=== PATIENT | female | born 1950 | race Caucasian/White ===

== ENCOUNTER 2017-09-30 09:43 | Outpatient (CLI) | payer MEDICARE, OTHER ==
--- NOTE | 2017-10-01 13:27 | Mammography Report ---
DIGITAL SCREENING MAMMOGRAM: 09/30/2017 CLINICAL INDICATION: A 67-year-old with family history of breast cancer for screening. COMPARISON: 08/2015, 06/2014, 11/2012, 10/2012, 07/2011, 11/2009 TECHNIQUE: Routine CC and MLO projections were obtained of the breasts. FINDINGS: Scattered fibroglandular tissue is present within the breasts. There are no dominant romaine s, suspicious microcalcifications, or secondary signs of malignancy. In comparison to the previous st udies, there are no significant changes. ASSESSMENT: NO MAMMOGRAPHIC EVIDENCE OF MALIGNANCY. NO SIGNIFICANT INTERVAL CHANGES. RECOMMENDATION: Screening mammography is recommended annually. BIRADS category 1 - negative. STANDARD QUALIFYING STATEMENTS 1. This examination was reviewed with the aid of Computed-Aided Detection (CAD). 2. A negative or benign imaging report should not delay biopsy if clinically suspicious findings are present. Consider surgical consultation if warranted. More than 5% of cancers are not identified by i maging. 3. Dense breasts may obscure an underlying neoplasm. JOB #: [id number] EXT JOB #:[id number]
== END 2017-09-30 09:44 | disposition home or self-care (01) ==
LOC: DI 09:43
PROVIDERS: ATTEND Internal Medicine
DX: Z12.31 Encounter for screening mammogram for malignant neoplasm of breast (principal); Z80.3 Family history of malignant neoplasm of breast
CPT/HCPCS: 77067

== ENCOUNTER 2018-11-19 08:40 | Outpatient (CLI) | payer MEDICARE, OTHER ==
--- NOTE | 2018-11-20 15:18 | Mammography Report ---
Reason: SCREENING MAMMO Procedure Date: 11/19/2018 Accession Number: [id number] / [id number] Procedure: REYES - Screening Mammo w/[facility] CPT Code: FULL RESULT: EXAM: Screening Mammo w/[facility] DATE: 11/19/2018 9:30 AM CLINICAL HISTORY: Routine screening TECHNIQUE: Bilateral CC and MLO views were obtained. COMPARISON: 09/30/2017, 08/17/2015 and 06/14/2014 FINDINGS: There are scattered fibroglandular densities. No significant interval change. No suspicious masses, clustered microcalcifications, or regions of architectural distortion are identified. Bilateral nodular densities are stable. IMPRESSION: Benign findings RECOMMENDATION: Routine annual screening unless otherwise clinically indicated. BIRADS CATEGORY 2: Benign findings STANDARD QUALIFYING STATEMENTS: 1. This examination was not reviewed with the aid of Computer-Aided Detection (CAD). 2. A negative or benign imaging report should not delay biopsy if clinically suspicious findings are present. Consider surgical consultation if warrented. More than 5% of cancers are not identified by imaging. 3. Dense breasts may obscure an underlying neoplasm. 4. This examination was reviewed with the aid of 3D breast imaging (tomosynthesis).
== END 2018-11-19 08:41 | disposition home or self-care (01) ==
LOC: DI 08:40
PROVIDERS: ATTEND Internal Medicine
DX: Z12.31 Encounter for screening mammogram for malignant neoplasm of breast (principal)
CPT/HCPCS: 77063; 77067

== ENCOUNTER 2019-04-30 10:53 | Day surgery (SDC) | payer MEDICARE, OTHER ==
[2019-04-30] MEDS ORDERED: LACTATED RINGERS 1,000 ML IV ONE (11:30)
[2019-04-30] MEDS ORDERED: MIDAZOLAM 2 MG/2 ML VIAL IVP ONE (13:03)
[2019-04-30] MEDS ORDERED: fentaNYL 250 MCG/5 ML VIAL IVP ONE (13:03)
[2019-04-30 14:06] VITALS: BP 104/72
== END 2019-04-30 10:54 | disposition home or self-care (01) ==
LOC: SDS 10:53
PROVIDERS: ATTEND Surgery
PROC: 0DBP8ZZ Excision of Rectum, Via Natural or Artificial Opening Endoscopic (ICD-10-PCS; principal; 2019-04-30 12:15)
DX: Z12.11 Encounter for screening for malignant neoplasm of colon (principal); D12.8 Benign neoplasm of rectum; K64.8 Other hemorrhoids; K57.30 Diverticulosis of large intestine without perforation or abscess without bleeding; Z80.0 Family history of malignant neoplasm of digestive organs
CPT/HCPCS: 45385; J3010; J7120

== ENCOUNTER 2019-08-11 10:26 | Outpatient (CLI) | payer MEDICARE, OTHER ==
--- NOTE | 2019-08-11 15:08 | Nuclear Medicine Report ---
Reason: CHEST PAIN Procedure Date: 08/11/2019 Accession Number: [id number] / [id number] Procedure: NM - Myocardial Perfusion STR/RST CPT Code: FULL RESULT: EXAM: SINGLE-ISOTOPE EXERCISE STRESS TEST. SINGLE-ISOTOPE AND ONE-DAY REST/STRESS MYOCARDIAL PERFUSION SCANS WITH TOMOGRAPHIC IMAGING, QUANTITATIVE ANALYSIS, WALL MOTION ANALYSIS AND CALCULATION OF EJECTION FRACTION. EXAM DATE: 08/11/2019 02:15 PM. CLINICAL HISTORY: Chest pain. COMPARISON: None available. TECHNIQUE: A rest myocardial perfusion scan was done with tomography after the intravenous administration of 9.9 mCi Tc-99m sestamibi. After an appropriate delay, a treadmill exercise stress was performed according to department protocol. The patient exercised for 6 minutes and 2 seconds. The maximum heart rate was 162 bpm, which was >100% of the maximum predicted heart rate of 152 bpm. At approximately peak heart rate, 43.6 mCi of Tc-99m sestamibi was injected for stress myocardial perfusion scan. Motion correction was applied when appropriate. Gated tomographic images were obtained for wall motion analysis and computation of left ventricular ejection fraction. FINDINGS: On visual analysis, no fixed or reversible perfusion defects are evident. Computer analysis. Summed stress score 2 Summed rest score 2 Summed difference score 0 Wall motion analysis demonstrates no focal wall motion abnormality. The left ventricular end-diastolic volume is 44 cc. The left ventricular end-systolic volume is 6 cc. The left ventricular ejection fraction is calculated to be 86%. IMPRESSION: 1. No scintigraphic findings to indicate myocardial ischemia. Negative for infarct. Based on computer analysis, normal study with no ischemia. 2. Normal left ventricular ejection fraction of 86%. 3. Normal segmental and global wall motion. 4. Normal left ventricular cavity size, no change with stress. Please correlate findings with stress ECG tracings and procedure notes. RADIA
--- NOTE | 2019-08-12 11:17 | CARDIAC PROCEDURE NOTE ---
Dr. Smith - please verify this is your report Dr. White was keyed in as dictator, so report did not interface I used Attending Physn (Dr. Phillips) to complete job, (&sounded like your voice) remove this flag before signing thanks DATE OF SERVICE: 08/11/2019 Physician: Zoila Phillips MD PROCEDURE: Exercise Cardiolite. PROTOCOL: Alexys. TIME: Six minutes 2 seconds. METs: 7.09. REASON FOR STOPPING TEST: The patient had gone 106% of her maximum predicted heart rate. HR response: 75 to maximum 162. Blood pressure response: 140/90 to 170/84. SYMPTOMS: The patient did have some chest tightness across her chest. ST-segment response: no significant ST-segment elevations or depressions. Arrhythmias: occasional PVC. IMPRESSION: The patient had symptoms, but there were no significant EKG changes. CONCLUSION: Await imaging. TD: 08/11/2019 13:01 MTDD
== END 2019-08-11 10:27 | disposition home or self-care (01) ==
LOC: DI 10:26
PROVIDERS: ATTEND Internal Medicine
DX: R07.9 Chest pain, unspecified (principal)
CPT/HCPCS: 78452; 93017; A9500

== ENCOUNTER 2021-03-09 07:49 | Outpatient (CLI) | payer MEDICARE, OTHER ==
--- NOTE | 2021-03-10 09:36 | Mammography Report ---
BILATERAL DIGITAL SCREENING MAMMOGRAM 3D/2D: 03/09/2021 CLINICAL: Routine screening. Comparison is made to exams dated: 11/19/2018 mammogram, 09/30/2017 mammogram, and 08/17/2015 mammogr am - [facility]. There are scattered fibroglandular elements in both breasts. There is a new oval high density mass with a spiculated margin in the left breast at 6 o'clock horseradish grinder ior depth. No other significant masses, calcifications, or other findings are seen in either breast. IMPRESSION: INCOMPLETE: NEEDS ADDITIONAL IMAGING EVALUATION The new oval high density mass in the left breast is indeterminate. Mediolateral and spot compressio n views as well as additional views with possible ultrasound are recommended. This exam was interpreted at Station ID: [id number]. NOTE: For mammograms, a report in lay terms will be sent to the patient. Approximately 15% of breast malignancies will not be visualized mammographically. In the management of a palpable breast mass, a negative mammogram must not discourage biopsy of a clinically suspicious lesion. Electronically Signed By: Quentin Irizarry M.D. ddp/:03/09/2021 08:41:44 ACR BI-RADS Category 0: Incomplete 3340F PARENCHYMAL PATTERN: (A) - The breast(s) demonstrate(s) scattered fibroglandular densities. BI-RADS CATEGORY: (0) - 0 Mammo and [place] [id number] Immediate follow-up LATERALITY: (B)
== END 2021-03-09 07:50 | disposition home or self-care (01) ==
LOC: DI 07:49
DX: Z12.31 Encounter for screening mammogram for malignant neoplasm of breast (principal); R92.8 Other abnormal and inconclusive findings on diagnostic imaging of breast

== ENCOUNTER 2021-04-04 09:59 | Outpatient (CLI) | payer MEDICARE, OTHER ==
--- NOTE | 2021-04-05 14:08 | Mammography Report ---
UNILATERAL LEFT DIGITAL DIAGNOSTIC MAMMOGRAM 3D/2D: 04/04/2021 CLINICAL: Patient returns today to evaluate a focal asymmetry in the left breast. Comparison is made to exams dated: 03/09/2021 mammogram, 11/19/2018 mammogram, 09/30/2017 mammogram, mammogram, 06/04/2014 mammogram, and 11/24/2012 mammogram - [facility]. Ther e are scattered fibroglandular elements in left breast. There is an oval equal density mass with a spiculated margin in the left breast at 6 o'clock posterio r depth. No other significant masses or calcifications are seen in the breast. IMPRESSION: INCOMPLETE: NEEDS ADDITIONAL IMAGING EVALUATION The oval equal density mass in the left breast is indeterminate. An ultrasound is recommended. Ultrasound will be performed immediately following the current exam. This exam was interpreted at Station ID: [id number]. NOTE: For mammograms, a report in lay terms will be sent to the patient. Approximately 15% of breast malignancies will not be visualized mammographically. In the management of a palpable breast mass, a negative mammogram must not discourage biopsy of a clinically suspicious lesion. Electronically Signed By: Quentin Irizarry M.D. ddp/:04/04/2021 11:14:45 ACR BI-RADS Category 0: Incomplete 3340F PARENCHYMAL PATTERN: (A) - The breast(s) demonstrate(s) scattered fibroglandular densities. BI-RADS CATEGORY: (0) - 0 Ultrasound [id number] Immediate follow-up LATERALITY: (B)
--- NOTE | 2021-04-05 14:08 | Ultrasound Report ---
LIMITED ULTRASOUND OF LEFT BREAST AND AXILLA: 04/04/2021 CLINICAL: Patient returns today to evaluate a focal asymmetry in the left breast. Comparison is made to exams dated: 04/04/2021 mammogram, 04/09/2021 mammogram, 03/09/2021 mammogram, 2018 mammogram, 09/30/2017 mammogram, and 08/17/2015 mammogram - [facility]. Color flow and real-time ultrasound of the left breast 6 o'clock, and axilla regions were performed on the areas of interest. Doll scale images of the real-time examination were reviewed. There is a 1 cm x 0.5 cm x 0.8 cm oval mass with a spiculated margin in the left breast at 6 o'clock middle depth. This oval mass is hypoechoic. This correlates with mammography findings. Color flow imaging demonstrates that there is vascularity present. No suspicious enlarged lymph nodes were seen sonographically in the left axilla. IMPRESSION: HIGHLY SUGGESTIVE OF MALIGNANCY The 1 cm x 0.5 cm x 0.8 cm oval mass in the left breast is highly suggestive of malignancy. An ultra sound guided biopsy is recommended. The findings were discussed with the patient at the conclusion of the study by Dr. Hardin. This exam was interpreted at Station ID: [id number]. Electronically Signed By: Quentin Irizarry M.D. ddp/:04/04/2021 14:33:32 Ultrasound BI-RADS: 5 Highly suggestive of malignancy BI-RADS CATEGORY: (5) - 5 None [id number] Immediate follow-up LATERALITY: ()
== END 2021-04-04 10:00 | disposition home or self-care (01) ==
LOC: DI 09:59
PROVIDERS: ATTEND Internal Medicine
DX: N63.25 Unspecified lump in the left breast, overlapping quadrants (principal)

== ENCOUNTER 2021-04-11 08:46 | Outpatient (CLI) | payer MEDICARE, OTHER ==
[~2021-04-11 08:46] MED LIST: BUFFERED LIDOCAINE 10 ML SYRINGE ONE; LIDOCAINE MPF 1%-EPI 1:200000 30 ML VIAL ONE
[2021-04-11] MEDS ORDERED: BUFFERED LIDOCAINE 10 ML SYRINGE IU ONE (15:51)
--- NOTE | 2021-04-14 06:29 | Mammography Report ---
DIGITAL TOMOGRAPHIC MAMMOGRAPHY GUIDED STEREOTACTIC GUIDED BIOPSY LEFT BREAST USING VACUUM DEVICE WIT H MARKING DEVICE INSERTED: 04/11/2021 CLINICAL: Patient returns for additional imaging over a suspected mass in the left breast. Correlation is made to exams dated: 04/09/2021 mammogram, 04/04/2021 ultrasound, 04/04/2021 mammogram, 03/09 mammogram, 11/19/2018 mammogram, and 09/30/2017 mammogram - [facility]. A stereotactic guided biopsy was performed for the mass located in the left breast at 6 o'clock poste rior depth. This was described on the previous mammography report. The skin was prepped in the usua l manner. Local anesthetic was administered to the access site. A small incision was made in the br east. The abnormality was approached from the craniocaudal aspect using an upright digital tomograph ic mammography unit. A biopsy needle was placed adjacent to the abnormality under computer guidance and confirmatory stereotactic mammography images were obtained to document needle placement. Once th e needle was documented to be in the correct location, a specimen was obtained using a vacuum assiste d device. A clip was inserted into the biopsy cavity. A skin closure strip and a sterile dressing w ere applied to the access site. Post procedure imaging demonstrates the location device at the [facility] area. The specimen was sent to the laboratory for pathological analysis. IMPRESSION: STEREOTACTIC GUIDED BIOPSY MALIGNANT Stereotactic guided biopsy of the mass in the left breast at 6 o'clock posterior depth was successful with no apparent post procedure complications. 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 Pathology results are concordant with imaging findings . A surgical/oncologic consultation is recommended. This exam was interpreted at Station ID: [id number]. Ernesto Hare M.D. ,aty/:04/13/2021 13:17:06 BI-RADS CATEGORY: () - Unspecified - other recall n/a LATERALITY: (B)
== END 2021-04-11 08:47 | disposition home or self-care (01) ==
LOC: DI 08:46
PROVIDERS: ATTEND Internal Medicine
DX: C50.812 Malignant neoplasm of overlapping sites of left female breast (principal); Z17.0 Estrogen receptor positive status [ER+]
CPT/HCPCS: 19081

== ENCOUNTER 2022-03-08 10:42 | Outpatient (CLI) | payer MEDICARE, OTHER ==
--- NOTE | 2022-03-08 11:11 | XRAY Report ---
PROCEDURE: Chest 2 View X-Ray INDICATIONS: ABNORMAL LUNG EXAM AND RALES L BASE TECHNIQUE: 2 view(s) of the chest. COMPARISON: None. FINDINGS: Surgical changes and devices: Left breast and axillary surgical clips. Lungs and pleura: No pleural effusions or pneumothorax. Lungs are clear. Mediastinum: Mediastinal contours are normal. Heart size is normal. Bones and chest wall: No suspicious bony abnormalities. Soft tissues appear unremarkable. IMPRESSION: No acute cardiopulmonary process demonstrated radiographically. Reviewed by: Ernesto Tiwari MD on 03/08/2022 11:10 AM PDT Approved by: Ernesto Tiwari MD on 03/08/2022 11:10 AM PDT Station ID: [id number]
== END 2022-03-08 10:43 | disposition home or self-care (01) ==
LOC: DI 10:42
PROVIDERS: ATTEND Internal Medicine
DX: R09.89 Other specified symptoms and signs involving the circulatory and respiratory systems (principal)

== ENCOUNTER 2022-06-04 08:04 | Outpatient (CLI) | payer MEDICARE, OTHER ==
[2022-06-04 08:31] LABS: CHOL/HDL RATIO 3.8 (<4.4); CHOLESTEROL 203 mg/dL; HDL CHOLESTEROL 54 mg/dL; LDL CHOLESTEROL,CALCULATED 120 mg/dL; LDL/HDL RATIO 2.2 (<4.4); TRIGLYCERIDES 144 mg/dL; VLDL CHOLESTEROL 29 mg/dL
== END 2022-06-04 08:05 | disposition home or self-care (01) ==
LOC: LAB 08:04
PROVIDERS: ATTEND Internal Medicine Cardiovascular Disease
DX: E78.00 Pure hypercholesterolemia, unspecified (principal); R94.31 Abnormal electrocardiogram [ECG] [EKG]; Z82.49 Family history of ischemic heart disease and other diseases of the circulatory system
CPT/HCPCS: 36415; 80061; 83721

== ENCOUNTER 2022-10-22 16:54 | Outpatient (CLI) | payer MEDICARE, OTHER ==
[2022-10-22 16:13] LABS: BASOPHILS # (AUTO) 0.1 10^3/uL (0.0-0.1); BASOPHILS % (AUTO) 1.3 %; EOSINOPHILS # (AUTO) 0.2 10^3/uL (0.0-0.7); EOSINOPHILS % (AUTO) 3.4 %; HCT - HEMATOCRIT 46.4 % (37.0-47.0); HGB - HEMOGLOBIN 15.2 g/dL (12.0-16.0); LYMPHOCYTES # (AUTO) 1.3 10^3/uL (1.5-3.5); LYMPHOCYTES % (AUTO) 27.7 %; MEAN CORPUSCULAR HEMOGLOBIN 28.8 pg (27.0-31.0); MEAN CORPUSCULAR HGB CONC 32.8 g/dL (32.0-36.0); MEAN CORPUSCULAR VOLUME 87.9 fL (81.0-99.0); MONOCYTES # (AUTO) 0.4 10^3/uL (0.0-1.0); MONOCYTES % (AUTO) 8.5 %; NEUTROPHILS # (AUTO) 2.8 10^3/uL (1.5-6.6); NEUTROPHILS % (AUTO) 59.1 %; PLT - PLATELET COUNT 301 10^3/uL (130-450); RED BLOOD COUNT 5.28 10^6/uL (4.20-5.40); RED CELL DISTRIBUTION WIDTH 12.4 % (12.0-15.0); WHITE BLOOD COUNT 4.7 x10^3/uL (4.8-10.8)
[2022-10-22 16:30] LABS: ALBUMIN 4.4 g/dL (3.2-5.5); ALBUMIN/GLOBULIN RATIO 1.5 (1.0-2.2); ALKALINE PHOSPHATASE 64 IU/L (42-121); ALT ALANINE AMINOTRANSFERASE 14 IU/L (10-60); AST ASPARTATE AMINOTRANSFERASE 19 IU/L (10-42); BUN - BLOOD UREA NITROGEN 16 mg/dL (6-20); CALCIUM 9.5 mg/dL (8.5-10.3); CARBON DIOXIDE - CO2 32 mmol/L (21-32); CHLORIDE 97 mmol/L (101-111); CHOL/HDL RATIO 4.6 (<4.4); CHOLESTEROL 244 mg/dL; CREATININE 0.9 mg/dL (0.4-1.0); GFR - MDRD 62 (>89); GLUCOSE 88 mg/dL (70-100); HDL CHOLESTEROL 53 mg/dL; LDL CHOLESTEROL,CALCULATED 156 mg/dL; LDL/HDL RATIO 2.9 (<4.4); SODIUM 137 mmol/L (135-145); TOTAL PROTEIN 7.4 g/dL (6.7-8.2); TRIGLYCERIDES 177 mg/dL; VLDL CHOLESTEROL 35 mg/dL
== END 2022-10-22 16:55 | disposition home or self-care (01) ==
LOC: LAB.R 16:54
PROVIDERS: ATTEND Internal Medicine
DX: Z00.00 Encounter for general adult medical examination without abnormal findings (principal); R10.9 Unspecified abdominal pain; F32.A Depression, unspecified; C50.919 Malignant neoplasm of unspecified site of unspecified female breast; A60.00 Herpesviral infection of urogenital system, unspecified; E78.5 Hyperlipidemia, unspecified; M81.0 Age-related osteoporosis without current pathological fracture
CPT/HCPCS: 80053; 80061; 82306; 83721; 84443; 85025

== ENCOUNTER 2023-05-13 09:19 | Outpatient (CLI) | payer MEDICARE, OTHER ==
[2023-05-13 09:45] LABS: CHOL/HDL RATIO 3.5 (<4.4); CHOLESTEROL 227 mg/dL; HDL CHOLESTEROL 65 mg/dL; LDL CHOLESTEROL,CALCULATED 141 mg/dL; LDL/HDL RATIO 2.2 (<4.4); TRIGLYCERIDES 104 mg/dL; VLDL CHOLESTEROL 21 mg/dL
== END 2023-05-13 09:20 | disposition home or self-care (01) ==
LOC: LAB 09:19
PROVIDERS: ATTEND Internal Medicine
DX: E78.5 Hyperlipidemia, unspecified (principal)
CPT/HCPCS: 36415; 80061; 83721

== ENCOUNTER 2023-11-07 09:25 | Day surgery (SDC) | payer MEDICARE, OTHER ==
[2023-11-07] MEDS ORDERED: LACTATED RINGERS 1,000 ML IV ONE (09:54)
[2023-11-07] MEDS ORDERED: PROPOFOL 500 MG/50 ML 500 MG/50 ML VIAL ONE (10:56)
[2023-11-07] MEDS ORDERED: LACTATED RINGERS 500 ML IV ONE ×2 (11:30)
--- NOTE | 2023-11-07 11:38 | ANESTHESIA ---
Pre-Anesthesia VS, & Labs - Diagnosis family hx of colon CA - Procedure colonoscopy Vital Signs: Temp Pulse Resp BP Pulse Ox O2 Flow Rate 36.1 C L 73 16 106/54 L 99 11/07/23 11:30 11/07/23 11:30 11/07/23 11:30 11/07/23 11:30 11/07/23 11:30 Height: 5 ft 7 in Weight (kg): 56.9 kg Body Mass Index: 19.6 BMI Classification: Normal - NPO >8 hours - Is Patient ?: No Home Medications and Allergies Home Medications: Ambulatory Orders Letrozole 2.5 mg ORAL DAILY 11/07/23 Acetaminophen [Tylenol Extra Strength] 500 mg PO PRN 04/29/19 Calcium Carbonate [Calcium] 600 mg PO 04/29/19 Vitamin B Complex 1 each PO 04/29/19 Letrozole 2.5 mg ORAL DAILY 11/07/23 Allergies/Adverse Reactions: Allergies Allergy/AdvReac Type Severity Reaction Status Date / Time Sulfa (Sulfonamide Allergy Severe Hives Verified 11/07/23 09:46 Antibiotics) Anes History & Medical History - Anesthetic History Anesthesia Complications: reports: No previous complications Family history of Anesthesia Complications: Denies Family history of Malignant Hyperthermia: Denies - Medical History Cardiovascular: reports: None Pulmonary: reports: None Gastrointestinal: reports: GERD, Diverticulitis, Other Urinary: reports: None Musculoskeletal: reports: Osteoporosis Endocrine/Autoimmune: reports: None Skin: reports: None Smoking Status: Never smoker - Surgical History General: reports: Colonoscopy Exam General: Alert, Oriented x3, Cooperative Dental: WNL, Dentures full Upper Mouth Openin Fingerbreadth Neck Mobility: Normal Mallampati classification: II Thyromental Distance: 4-6 cm Respiratory: Lungs clear Cardiovascular: Regular rate Plan Anesthesia Type: General, Total IV Consent for Procedure(s) Verified and Reviewed: Yes Code Status: Attempt Resuscitation ASA classification: 2-Mild systemic disease Is this case an emergency?: No
[2023-11-07 11:48] VITALS: BP 104/57; O2SAT 100
--- NOTE | 2023-11-07 14:00 | ANESTHESIA POST OP EVALUATION ---
Anesthesia Post Eval - Post Anesthesia Eval Vitals: Last Vital Signs Temp 36.1 C L 11/07/23 11:43 Pulse 67 11/07/23 11:43 Resp 16 11/07/23 11:43 BP 104/57 L 11/07/23 11:43 Pulse Ox 100 11/07/23 11:43 O2 Flow Rate CV Function Including HR & BP: Stable Pain Control: Satisfactory Nausea & Vomiting: Negative Mental Status: Baseline Respiratory Status: Airway Patent Hydration Status: Satisfactory Anesthesia Complications: None
== END 2023-11-07 09:26 | disposition home or self-care (01) ==
LOC: SDS 09:25
PROVIDERS: ATTEND Surgery
DX: Z12.11 Encounter for screening for malignant neoplasm of colon (principal); K57.30 Diverticulosis of large intestine without perforation or abscess without bleeding; Z80.0 Family history of malignant neoplasm of digestive organs; Z86.010 Personal history of colon polyps
CPT/HCPCS: G0105; J7120